=== PATIENT | male | born 1940 ===

== ENCOUNTER 2018-12-11 10:29 | Inpatient (IN) | payer MEDICARE ==
[2018-12-11] MEDS ORDERED: Sodium Chloride 0.9% 500 ML IV ONE ×4 (11:03→13:54)
--- NOTE | 2018-12-11 11:16 | C.PDOC ---
History Of Present Illness 78 y/o male,w/PMhx of diabetes and HTN, presents to the ER complaining of feeling lightheaded since yesterday. Patient states that the lightheadedness is worse from sitting to standing. Patient reports that he has not taken any of his medications since August 2018 due to "laziness." He notes that he has some blurry vision which he has been experiencing more frequently recently. Denies having facial droop, slurred speech, CP,SOB, palpitations, extremity weakness and sensory changes. Time Seen by Provider: 12/11/18 10:48 Chief Complaint (Nursing): Dizziness/Lightheaded History Per: Patient History/Exam Limitations: no limitations Onset/Duration Of Symptoms: Days Current Symptoms Are (Timing): Still Present Severity: Moderate Past Medical History Reviewed: Historical Data, Nursing Documentation, Vital Signs Vital Signs: Last Vital Signs Temp 98.2 F 12/11/18 10:40 Pulse 65 12/11/18 10:40 Resp 20 12/11/18 10:40 BP 171/80 H 12/11/18 10:40 Pulse Ox 99 12/11/18 10:40 - Medical History PMH: HTN, Hypercholesterolemia, Hypothyroidism Other Surgeries: Hx of surgeries Family History: States: No Known Family Hx - Social History Hx Alcohol Use: No Hx Substance Use: No Review Of Systems Except As Marked, All Systems Reviewed And Found Negative. Constitutional: Negative for: Fever, Chills Eyes: Negative for: Vision Change Cardiovascular: Negative for: Chest Pain Respiratory: Negative for: Shortness of Breath Gastrointestinal: Negative for: Nausea, Vomiting Neurological: Positive for: Dizziness. Negative for: Weakness, Numbness, Headache Physical Exam - Physical Exam Appears: Non-toxic, No Acute Distress Skin: Normal Color, Warm, Dry Head: Atraumatic, Normacephalic Eye(s): bilateral: Normal Inspection, PERRL, EOMI Nose: Normal Oral Mucosa: Moist Neck: Supple Chest: Symmetrical Cardiovascular: Rhythm Regular Respiratory: Normal Breath Sounds, No Rales, No Rhonchi, No Wheezing Gastrointestinal/Abdominal: Normal Exam, Soft, No Tenderness, No Guarding, No Rebound Neurological/Psych: Oriented x3, Normal Speech, Normal Motor, Normal Sensation ED Course And Treatment - Laboratory Results Result Diagrams: 12/11/18 11:35 12/11/18 11:35 O2 Sat by Pulse Oximetry: 99 (RA) Pulse Ox Interpretation: Normal - Radiology CXR: Interpreted by Me, Viewed By Me CXR Interpretation: Yes: No Acute Disease Progress Note: Labs, UA,ECG, and CXR ordered. Patient treated with IV Fluids. Disposition - Disposition Disposition: HOSPITALIZED - Scribe Statement The provider has reviewed the documentation as recorded by the Timoibe Fam Shelton Provider Attestation: All medical record entries made by the Scribe were at my direction and personally dictated by me. I have reviewed the chart and agree that the record accurately reflects my personal performance of the history, physical exam, medical decision making, and the department course for this patient. I have also personally directed, reviewed, and agree with the discharge instructions and disposition.
--- NOTE | 2018-12-11 11:45 | RAD ---
Date of service: 12/11/2018 PROCEDURE: CHEST RADIOGRAPH, 1 VIEW HISTORY: HYPERGLYCEMIA COMPARISON: None available. FINDINGS: LUNGS: Clear. PLEURA: No pneumothorax or pleural fluid seen. CARDIOVASCULAR: No aortic atherosclerotic calcification present. Normal. OSSEOUS STRUCTURES: No significant abnormalities. VISUALIZED UPPER ABDOMEN: Normal. OTHER FINDINGS: None. IMPRESSION: No active disease.
[2018-12-11 11:48] LABS: VENOUS BLOOD GAS BASE EXCESS -1.4 mmol/L (0.0-2.0); VENOUS BLOOD GAS PCO2 54 mmHg (40-60); VENOUS BLOOD GAS PO2 22 mm/Hg (30-55); VENOUS BLOOD PH 7.29 (7.32-7.43)
[2018-12-11 11:53] LABS: BASO # 0.1 K/uL (0.0-0.2); BASO % 0.8 % (0.0-2.0); EOS # 0.2 K/uL (0.0-0.7); EOS % 1.9 % (0.0-4.0); HEMOGLOBIN 14.8 g/dL (12.0-18.0); LYMPH # 3.3 K/uL (1.0-4.3); LYMPH % 35.1 % (20.0-40.0); MEAN CELL VOLUME 94.2 fL (80.0-94.0); MEAN CORPUSCULAR HEMOGLOBIN 30.7 pg (27.0-31.0); MEAN CORPUSCULAR HGB CONC 32.6 g/dL (33.0-37.0); MEAN PLATELET VOLUME 12.1 fL (7.2-11.7); MONO # 0.5 K/uL (0.0-0.8); MONO % 5.2 % (0.0-10.0); NEUT # 5.4 K/uL (1.8-7.0); NRBC % 0.1 % (0.0-2.0); RBC 4.81 Mil/uL (4.40-5.90); RED CELL DISTRIBUTION WIDTH 15.1 % (11.5-14.5); WHITE BLOOD COUNT 9.5 K/uL (4.8-10.8)
[2018-12-11 12:02] LABS: ALB/GLOB RATIO 1.7 (1.0-2.1); ALBUMIN 4.5 g/dL (3.5-5.0); ALT/SGPT 10 U/L (21-72); AST/SGOT 42 U/L (17-59); BLOOD UREA NITROGEN 12 mg/dL (9-20); CALCIUM 9.6 mg/dl (8.6-10.4); GFR NON-AFRICAN AMERICAN > 60
[2018-12-11 12:05] LABS: CK-MB 0.47 ng/mL (0.0-3.38)
[2018-12-11] MEDS ORDERED: (Novolin R) Insulin Human Regular 100 units/ml vial IVP ONE (12:11)
[2018-12-11 12:27] LABS: URINE BILIRUBIN NEGATIVE (NEGATIVE); URINE BLOOD NEGATIVE (NEGATIVE); URINE CLARITY Clear (Clear); URINE COLOR Straw (YELLOW); URINE GLUCOSE (UA) 3+ mg/dL (Normal); URINE LEUKOCYTE ESTERASE NEG Leu/uL (Negative); URINE PROTEIN NEGATIVE (NEGATIVE); URINE UROBILINOGEN NORMAL mg/dL (0.2-1.0)
[2018-12-11] MEDS ORDERED: (Novolin R) Insulin Human Regular 100 units/ml vial ONE (12:33)
--- NOTE | 2018-12-11 12:59 | CT ---
Date of service: 12/11/2018 PROCEDURE: CT HEAD WITHOUT CONTRAST. HISTORY: dizziness, requested by PMD COMPARISON: None available. TECHNIQUE: Axial computed tomography images were obtained through the head/brain without intravenous contrast. Radiation dose: Total exam DLP = 959.33 mGy-cm. This CT exam was performed using one or more of the following dose reduction techniques: Automated exposure control, adjustment of the mA and/or kV according to patient size, and/or use of iterative reconstruction technique. FINDINGS: HEMORRHAGE: No intracranial hemorrhage. BRAIN: There expansion of the ventricular sulcal and cisternal spaces with the ventricular system somewhat more dilated than the sulcal spaces, in general, raising potential possibility of communicating or normal pressure hydrocephalus. This could reflect central atrophy nevertheless given this elderly patient. No prior comparison available. Clinically correlate. Correlate with prior brain imaging is recommended if possible. Diffuse cerebral atrophy chronic microangiopathy are identified which appear age-appropriate. Otherwise, small chronic infarction or other cause of focal encephalomalacia is seen in the very small volume of the right frontal lobe anteriorly with deep white matter coarse calcification appreciated posterior medial to it. This could reflect distant prior infectious or inflammatory process. Chronic lacune is seen at the left thalamus. No suspicious extra-axial fluid collection appreciable. Midline brain anatomy is unremarkable as well as the posterior fossa contents including the brainstem. VENTRICLES: Unremarkable. No hydrocephalus. CALVARIUM: Prior left frontal and left parietal craniotomies (separate). Calvarium and skull base otherwise appear unremarkable. PARANASAL SINUSES: Unremarkable as visualized. No significant inflammatory changes. MASTOID AIR CELLS: Unremarkable as visualized. No inflammatory changes. OTHER FINDINGS: None. IMPRESSION: No definite acute intracranial findings by standard criteria. Potential normal pressure hydrocephalus the central atrophy is likely. Patient has undergone prior craniotomies in the past and likelihood of outside brain imaging is high. Comparison with that prior imaging is recommended for treatable for added characterization of the ventricular system. Post infectious or inflammatory changes right frontal lobe. Prior left frontal and left parietal craniotomies.
[2018-12-11] MEDS ORDERED: Sodium Chloride 0.9% 1,000 ML ONE (14:26)
[2018-12-11] MEDS: (Novolin R) Insulin Human Regular 100 units/ml vial SC SCH ×2 (17:40→22:02)
--- NOTE | 2018-12-12 01:24 | HP ---
HISTORY OF PRESENT ILLNESS: This is a 78-year-old gentleman who came into the ER with unsteady gait and dizzy spell, started about two days ago. The patient has a longstanding history of hypertension, previous CVA, hypothyroidism and diabetes mellitus. He was in usual state of health up until two days ago when he experienced generalized weakness, unsteady gait and near syncopal episode. MEDICATIONS: At home include Altace 2.5 mg one a day, Feosol, Janumet , hydrochlorothiazide, Prandin 2 mg three times a day, and Synthroid 25 mcg one a day. ALLERGIES: DENIED. PERSONAL HISTORY: Does not smoke. Does not drink. FAMILY HISTORY: Negative for premature coronary artery disease. PAST MEDICAL HISTORY: History of fractured ankle on the left side in 1972 and had a surgery done. In 01/1974, he had removal of the screw at the same place. In 1998, he sustained a CVA and subdural hematoma with right-sided weakness, which he has recovered. REVIEW OF SYSTEMS: CONSTITUTIONAL: Generalized weakness is noted. No fever. No chills. EYES: No visual disturbances. EARS: Negative for hearing loss. THROAT: Negative for sore throat or cough. NECK: Negative for swollen glands. PULMONARY: Negative for cough or hemoptysis. No wheezing. CARDIAC: Positive for hypertension, dyspnea on exertion, but no chest pain. No documented [place]. No palpitations. No edema. GASTROINTESTINAL: Negative for hematemesis or melena. NEUROLOGIC: History of headaches and occasional dizziness. MUSCULOSKELETAL: History of occasional knee pains. GENITOURINARY: Frequency is noted. No nocturia. PSYCHIATRIC: No evidence of depression. IMAGING: Previous echocardiogram had shown normal LV systolic function, mild LV diastolic dysfunction, no significant valvular heart disease, no electrical abnormalities. PHYSICAL EXAMINATION: GENERAL: Shows an elderly gentleman who is conscious, alert, and well oriented, in no acute distress. VITAL SIGNS: He is 5 feet and 2 inches and weighs 150 pounds. His blood pressure is 140/70, heart rate of 60 and regular. Telemetry shows sinus rhythm, respiratory rate of 10. Afebrile. Temperature is 97.7. HEENT: Mouth is unremarkable. No exudate. NECK: Supple. LUNGS: Clear to auscultation bilaterally. HEART: PMI is normal. S1 and S2 are normal. Soft S4. There is 2/6 systolic ejection murmur in the aortic area. ABDOMEN: Soft. Nontender. NEUROLOGIC: He is awake, alert, and oriented. Mild weakness in the left upper extremity as compared to the lower and compared to right. MUSCULOSKELETAL: Osteoarthritis of the knees. PSYCHIATRIC: No evidence of depression. LABORATORY DATA: EKG: Sinus rhythm. Left axis deviation. Non-specific ST-T changes. CBC and chem-7 are unremarkable except elevated blood sugar of 559, repeat one is 379. CT of the head showed hydrocephalus. ASSESSMENT AND PLAN: This is a 78-year-old male with a history of possible transient ischemic attack, hypertension, and diabetes. The patient had apparently stopped taking all his medications for the past four months. At this point, we will admit him. Neurological consultation. Accu-Cheks coverage. We will resume all the medications, hydration. Care of plan was explained to the patient and his son who was at the bedside. Say Miranda MD
[2018-12-12] MEDS: (Novolin R) Insulin Human Regular 100 units/ml vial SC SCH ×5 (02:25→21:43)
[2018-12-12] MEDS: Levothyroxine 50 MCG TAB PO SCH (05:50)
[2018-12-12 07:32] LABS: ALB/GLOB RATIO 1.6 (1.0-2.1); ALBUMIN 3.4 g/dL (3.5-5.0); ALT/SGPT 8 U/L (21-72); AST/SGOT 21 U/L (17-59); BLOOD UREA NITROGEN 12 mg/dL (9-20); CALCIUM 8.7 mg/dl (8.6-10.4); GFR NON-AFRICAN AMERICAN > 60
[2018-12-12] MEDS: Pantoprazole 40 mg EC Tab PO SCH (10:36)
--- NOTE | 2018-12-12 10:45 | MRI ---
Date of service: 12/12/2018 PROCEDURE: MRI BRAIN WITHOUT CONTRAST HISTORY: unsteady gait, hydrocephalus COMPARISON: CT head without contrast from 12/11/2018. TECHNIQUE: Multiplanar, multisequence MR images of the brain were obtained without intravenous contrast enhancement. FINDINGS: HEMORRHAGE: None DWI: No evidence of an acute or early subacute infarction. BRAIN PARENCHYMA: There are mild chronic microangiopathic changes. There are small chronic infarctions in the right paramedian inferior frontal lobe. There is no mass, mass effect or abnormal extra-axial fluid collection. There is no territorial infarction. The midline sagittal structures are normal. VENTRICLES: There is moderate age-related global parenchymal volume loss and proportionate enlargement of the cortical sulci. Ventricular dilatation is out of proportion to the sulcal prominence. CRANIUM: There is normal bone marrow signal pattern. ORBITS: Grossly unremarkable. PARANASAL SINUSES/MASTOIDS: There is mild mucosal thickening in the frontal sinuses and ethmoid air cells and mild polypoid mucosal thickening in the left maxillary sinus. There is trace fluid in the right mastoid air cells. The left mastoid air cells are predominantly clear. VASCULAR SYSTEM: There are normal signal voids in the larger intracranial arteries. OTHER FINDINGS: None. IMPRESSION: No acute intracranial abnormality. Mild chronic microangiopathic changes and moderate age-related global parenchymal volume loss. Ventricular dilatation is slightly out of proportion to the sulcal prominence and normal pressure hydrocephalus is a consideration for which clinical follow-up is advised.
[2018-12-12 12:08] LABS: HDL CHOLESTEROL 36 mg/dL (30-70)
--- NOTE | 2018-12-12 12:11 | CP.PCM.PN ---
Subjective - Date & Time of Evaluation Date of Evaluation: 12/12/18 Time of Evaluation: 12:09 - Subjective Subjective: feels better.mri noted. Objective - Vital Signs/Intake and Output Vital Signs (last 24 hours): Temp Pulse Resp BP Pulse Ox 98.1 F 57 L 18 144/69 98 12/12/18 07:25 12/12/18 08:01 12/12/18 07:25 12/12/18 10:36 12/12/18 07:25 Intake and Output: 12/12/18 12/12/18 06:59 18:59 Intake Total 480 Balance 480 - Medications Medications: Current Medications Aspirin (Aspirin Chewable) 81 mg PO DAILY [facility] Enalapril Maleate (Vasotec) 5 mg PO [facility]ILY [facility] Last Admin: 12/12/18 10:36 Dose: 5 mg Insulin Human Regular (Novolin R) 0 unit SC [facility]; Protocol Last Admin: 12/12/18 11:25 Dose: 10 units Levothyroxine Sodium (Synthroid) 50 mcg PO DAILY@0630 [facility] Last Admin: 12/12/18 05:50 Dose: 50 mcg Metformin HCl (Glucophage Xr) 1,000 mg PO [facility] Last Admin: 12/11/18 22:01 Dose: 1,000 mg Pantoprazole Sodium (Protonix Ec Tab) 40 mg PO DAILY [facility] Last Admin: 12/12/18 10:36 Dose: 40 mg Pneumococcal Polyvalent Vaccine (Pneumovax 23 Vaccine) 0.5 ml IM .ONCE ONE Stop: 12/13/18 10:01 Repaglinide (Prandin) 1 mg PO TID [facility] Last Admin: 12/12/18 10:35 Dose: 1 mg Rosuvastatin Calcium (Crestor) 20 mg PO [facility] Last Admin: 12/11/18 22:02 Dose: 20 mg Sitagliptin Phosphate (Januvia) 100 mg PO [facility] Last Admin: 12/11/18 22:02 Dose: 100 mg - Labs Labs: 12/11/18 11:35 12/12/18 07:03 - Constitutional Appears: No Acute Distress - Head Exam Head Exam: NORMOCEPHALIC - Neck Exam Neck Exam: Normal Inspection - Respiratory Exam Respiratory Exam: Clear to Ausculation Bilateral - Cardiovascular Exam Cardiovascular Exam: REGULAR RHYTHM - GI/Abdominal Exam GI & Abdominal Exam: Soft - Extremities Exam Extremities Exam: absent: Pedal Edema - Neurological Exam Neurological Exam: Alert, Oriented x3 Assessment and Plan - Assessment and Plan (Free Text) Assessment: uncontrolled sugar.all meds resumed.will d/c in am if stable.
[2018-12-12 12:19] LABS: LDL CHOLESTEROL 183 mg/dL (0-129)
--- NOTE | 2018-12-12 12:43 | CARD ---
APPROVED REPORT Date of service: 12/11/2018 EKG Measurement Heart [id number] MD [id number] <Conclusion> Sinus bradycardia Left axis deviation Left ventricular hypertrophy with repolarization abnormality Cannot rule out Septal infarct, age undetermined Abnormal ECG
--- NOTE | 2018-12-12 22:45 | CON ---
DATE: 12/12/2018 Neurology consult called by Dr. Say Miranda. HISTORY OF PRESENT ILLNESS: Mr. Vicente Navarro is a 78-year-old male with past medical history of diabetes, hypertension who presented to ER with a complaint of headache since a couple of weeks before admission. On my history taking, the patient stated that the day before yesterday he was trying to walk, he was very dizzy, and then became progressively worse. He notes in 1997 he fell on the job, hit his head, and had a skull fracture and subdural hematoma evacuation. He did not hit at this time. The dizziness is worse when he stands, worse when he walks, and comes on suddenly without any diaphoresis, chest pain, or palpitations. REVIEW OF SYSTEMS: On my current exam, it is negative for aphasia, dysarthria, weakness, diaphoresis, or headache. There were no visual symptoms noted during this exam. PAST MEDICAL HISTORY: Skull fracture, hypertension, hyper cholesterol, hypothyroidism. Other history is unknown. FAMILY HISTORY: Lives with family. Has several children. SOCIAL HISTORY: No tobacco. No alcohol. ALLERGIES: NO KNOWN DRUG ALLERGIES. PHYSICAL EXAMINATION: GENERAL: The patient is alert, awake, oriented x3. NEUROLOGIC: Pupils are equal, round and reactive to light. Cranial nerves II through XII are normal. Motor 5/5 in upper and lower limbs bilaterally. Sensory is intact to fine touch, pin, and position. Cerebellar, [id number] shows no dysmetria. Gait is normal. There is no ataxia. There is no droop. LABORATORY DATA: Labs within normal limits. MRI of the brain was done and it shows the following: Ventricular dilatation out of proportion with possible mild hydrocephalus noted. I did confirm by his previous . 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 We will monitor as an outpatient basis. RECOMMENDATIONS: 1. Carotid Dopplers. 2. Follow up with Neurology as well. Thank you for this interesting consult. Mariel Garcia MD
[2018-12-13] MEDS: Levothyroxine 50 MCG TAB PO SCH (06:09)
[2018-12-13] MEDS: (Novolin R) Insulin Human Regular 100 units/ml vial SC SCH ×4 (08:23→21:39)
[2018-12-13] MEDS ORDERED: Pneumococcal 23-Valent Vaccine IM ONE (10:00)
[2018-12-13] MEDS: Pantoprazole 40 mg EC Tab PO SCH (10:01)
--- NOTE | 2018-12-13 10:03 | CP.PCM.PN ---
Subjective - Date & Time of Evaluation Date of Evaluation: 12/13/18 Time of Evaluation: 10:01 - Subjective Subjective: no more dizzy spells.vital ok.accu check still high. Objective - Vital Signs/Intake and Output Vital Signs (last 24 hours): Temp Pulse Resp BP Pulse Ox 97.6 F 56 L 20 139/77 98 12/13/18 07:00 12/13/18 07:00 12/13/18 07:00 12/13/18 07:00 12/13/18 07:00 Intake and Output: 12/13/18 12/13/18 06:59 18:59 Intake Total 450 Balance 450 - Medications Medications: Current Medications Aspirin (Aspirin Chewable) 81 mg PO DAILY [facility] Last Admin: 12/12/18 12:12 Dose: 81 mg Enalapril Maleate (Vasotec) 5 mg PO DAILY [facility] Last Admin: 12/12/18 10:36 Dose: 5 mg Glimepiride (Amaryl) 2 mg PO DAILY [facility] Insulin Human Regular (Novolin R) 0 unit SC [facility]; Protocol Last Admin: 12/13/18 08:23 Dose: 4 units Levothyroxine Sodium (Synthroid) 50 mcg PO DAILY@0630 [facility] Last Admin: 12/13/18 06:09 Dose: 50 mcg Metformin HCl (Glucophage Xr) 1,000 mg PO [facility] Last Admin: 12/12/18 21:36 Dose: 1,000 mg Pantoprazole Sodium (Protonix Ec Tab) 40 mg PO [facility]ILY [facility] Last Admin: 12/12/18 10:36 Dose: 40 mg Repaglinide (Prandin) 1 mg PO TID [facility] Last Admin: 12/12/18 18:37 Dose: 1 mg Rosuvastatin Calcium (Crestor) 20 mg PO [facility] Last Admin: 12/12/18 21:35 Dose: 20 mg Sitagliptin Phosphate (Januvia) 100 mg PO [facility] Last Admin: 12/12/18 21:35 Dose: 100 mg - Labs Labs: 12/11/18 11:35 12/12/18 07:03 - Constitutional Appears: No Acute Distress - Head Exam Head Exam: NORMOCEPHALIC - Neck Exam Neck Exam: Normal Inspection - Respiratory Exam Respiratory Exam: Clear to Ausculation Bilateral - Cardiovascular Exam Cardiovascular Exam: REGULAR RHYTHM, Murmur - GI/Abdominal Exam GI & Abdominal Exam: Soft - Extremities Exam Extremities Exam: absent: Pedal Edema - Neurological Exam Neurological Exam: Alert, Oriented x3 Assessment and Plan - Assessment and Plan (Free Text) Plan: will add glimeperide .d/c home in am
[2018-12-14] MEDS: Levothyroxine 50 MCG TAB PO SCH (06:44)
[2018-12-14 07:36] VITALS: BP 130/72; RESP 20; TEMP 98.1; O2SAT 96
[2018-12-14] MEDS: (Novolin R) Insulin Human Regular 100 units/ml vial SC SCH ×2 (08:30→12:48)
[2018-12-14] MEDS: Pantoprazole 40 mg EC Tab PO SCH (09:34)
[2018-12-14 09:46] VITALS: PULSE 57
--- NOTE | 2018-12-15 05:52 | DS ---
HOSPITAL COURSE: This is a 78-year-old gentleman who was brought with unsteady gait and his Accu-Cheks were 500. He is also hypertensive and diabetic for many years. Apparently, the patient has stopped taking all his medications including ramipril, Januvia, metformin, and Prandin. The patient's all medication resumed. Neurological workup has been negative. CT and MRI of the brain were unremarkable. Carotid Doppler duplex done in the office sometime ago was unremarkable. The patient is stable now. Vital signs are stable. At this point, he is discharged and was advised to resume all his p.o. medications at home. Vital signs are stable. Physical exam is unremarkable. FINAL DIAGNOSES: Uncontrolled diabetes, hypertension, near syncope. Say Miranda MD
== END 2018-12-14 14:52 | disposition home or self-care (01) | DRG 639 ==
LOC: C.ER 10:29 → C.9E 13:55 → C.5S 14:58
PROVIDERS: ADMIT Internal Medicine Cardiovascular Disease; ATTEND Internal Medicine Cardiovascular Disease
DX: E11.65 Type 2 diabetes mellitus with hyperglycemia (principal); R55 Syncope and collapse; I10 Essential (primary) hypertension; E03.9 Hypothyroidism, unspecified; E78.00 Pure hypercholesterolemia, unspecified; R26.81 Unsteadiness on feet; Z23 Encounter for immunization; Z79.84 Long term (current) use of oral hypoglycemic drugs; Z87.820 Personal history of traumatic brain injury; Z87.81 Personal history of (healed) traumatic fracture; Z91.81 History of falling